=== PATIENT | male | born 1955 | race Caucasian/White ===

== ENCOUNTER 2023-07-31 15:32 | Emergency (ER) | payer MEDICARE, MEDICAID ==
[~2023-07-31] VITALS: Ht 175.3 cm; Wt 80.0 kg
[2023-07-31 15:36] VITALS: TEMP 98; O2SAT 100
[2023-07-31] MEDS ORDERED: OXYC-100 MT (15:53)
[2023-07-31 16:00] VITALS: BP 129/75; PULSE 69; RESP 16
[2023-07-31] MEDS ORDERED: OXYCODONE HCL/ACETAMINOPHEN 5/325MG TABLET PO ONE (16:00)
== END 2023-07-31 16:51 | disposition home or self-care (01) ==
LOC: ER 15:32
DX: M25.552 Pain in left hip (principal)
CPT/HCPCS: 99283